=== PATIENT | female | born 1985 | race Two or more races ===

== ENCOUNTER 2022-07-02 13:11 | Emergency (ER) | payer OTHER ==
[~2022-07-02] VITALS: Ht 157.5 cm; Wt 75.3 kg
[2022-07-02] MEDS ORDERED: LAMICTAL100 M1 PO (13:25)
[2022-07-02] MEDS ORDERED: SEROQUEL200 MG PO (13:25)
[2022-07-02] MEDS ORDERED: CEPHALEXIN500 MG PO (14:19)
[2022-07-02] MEDS ORDERED: MUPIROCIN15 GM TOP (14:19)
== END 2022-07-02 14:29 | disposition home or self-care (01) ==
LOC: ER 13:11
DX: L01.00 Impetigo, unspecified (principal); L02.413 Cutaneous abscess of right upper limb

== ENCOUNTER 2022-11-27 16:38 | Emergency (ER) | payer OTHER ==
[~2022-11-27] VITALS: Ht 157.5 cm; Wt 77.1 kg
[~2022-11-27 16:38] MED LIST: CEPHALEXIN500 MG PO; LAMICTAL100 M1 PO; MUPIROCIN15 GM TOP; SEROQUEL200 MG PO
== END 2022-11-27 19:37 | disposition home or self-care (01) ==
LOC: ER 16:38
DX: M62.830 Muscle spasm of back (principal)